=== PATIENT | male | born 1970 | race Caucasian/White ===

== ENCOUNTER 2021-06-21 06:38 | Day surgery (SDC) | payer BC ==
[~2021-06-21 06:38] MED LIST: Lactated Ringers 1,000 ML IV SCH
[2021-06-21] MEDS ORDERED: Lidocaine 2% 5 ML SDV ONE (07:08)
[2021-06-21] MEDS ORDERED: Bupivacaine 0.5% 10 ML SDV ONE (07:08)
[2021-06-21] MEDS ORDERED: fentaNYL 100 MCG/2 ML SDV ONE ×3 (07:16→08:19)
[2021-06-21] MEDS ORDERED: Propofol 200 MG/20 ML SDV ONE (07:56)
[2021-06-21] MEDS ORDERED: Midazolam 1 MG/ML 2 ML SDV ONE (07:56)
[2021-06-21] MEDS ORDERED: Rocuronium Bromide 50 MG/5 ML Syringe ONE (07:57)
[2021-06-21] MEDS ORDERED: Esmolol 100 MG/10 ML SDV ONE (07:57)
[2021-06-21] MEDS ORDERED: ceFAZolin 2 GM in Premix Bag 1 BAG IV SCH (08:00)
[2021-06-21] MEDS ORDERED: Succinylcholine/Sod PF 100 MG/5 ML SYRINGE IV ONE (08:01)
[2021-06-21] MEDS ORDERED: Ondansetron 4 MG/2 ML SDV IVPUSH PRN (08:25)
[2021-06-21] MEDS ORDERED: Naloxone 0.4 MG/ML SDV IVPUSH PRN (08:25)
[2021-06-21] MEDS ORDERED: fentaNYL 100 MCG/2 ML SDV IVPUSH PRN (08:25)
[2021-06-21] MEDS ORDERED: HYDROmorphone 1 MG/ML Syringe IVPUSH PRN (08:25)
[2021-06-21] MEDS ORDERED: Morphine 4 MG/ML VIAL IVPUSH PRN (08:25)
[2021-06-21] MEDS ORDERED: Metoclopramide 10 MG/2 ML SDV IVPUSH PRN (08:25)
[2021-06-21] MEDS ORDERED: Albuterol 0.083% 2.5 MG/3 ML Neb Soln NEB PRN (08:25)
[2021-06-21] MEDS ORDERED: Octyl 2-Cyanoacrylate 1 Tube ONE (08:55)
[2021-06-21] MEDS ORDERED: Bupivacaine 0.25%/EPINEPHrine 1:200,000 10 ML SDV ONE (08:55)
[2021-06-21] MEDS ORDERED: Dexamethasone 4 MG/ML 5 ML MDV ONE (09:04)
[2021-06-21] MEDS ORDERED: Dexmedetomidine 200 MCG/2 ML SDV ONE (09:04)
[2021-06-21] MEDS ORDERED: Phenylephrine 1% 10 MG/ML SDV ONE (09:54)
[2021-06-21] MEDS ORDERED: Ketorolac 30 MG/ML SDV ONE (11:30)
[2021-06-21] MEDS ORDERED: Ondansetron 4 MG/2 ML SDV ONE (11:30)
== END 2021-06-21 14:05 | disposition home or self-care (01) ==
LOC: MW.SDS 06:38
PROVIDERS: ATTEND Orthopaedic Surgery
DX: S42.001K Fracture of unspecified part of right clavicle, subsequent encounter for fracture with nonunion (principal); I10 Essential (primary) hypertension; Z79.899 Other long term (current) drug therapy; X58.XXXD Exposure to other specified factors, subsequent encounter
CPT/HCPCS: 23515; 36415; 85610; 85730; A9270; J0131; J0330; J0690; J1100; J1885; J2250; J2370; J2405; J2704; J3490; J7120; J3010